=== PATIENT | male | born 1985 | race Two or more races ===

== ENCOUNTER 2016-08-27 12:02 | Emergency (ER) | payer OTHER ==
--- NOTE | 2016-08-27 12:21 | ER Document Report ---
ED Medical Screen (RME) - General Stated Complaint: NAUSEA Notes: Periodic rash to lower extremities I greeted and performed a rapid initial assessment of this patient. Comprehensive ED assessment and evaluation of the patient, analysis of test results and completion of the medical decision making process will be conducted by additional ED providers. Physical Exam - Vital signs Vitals: Temp Pulse Resp BP Pulse Ox 97.9 F 66 20 135/92 H 97 08/27/16 12:17 08/27/16 12:17 08/27/16 12:17 08/27/16 12:17 08/27/16 12:17 Course - Vital Signs Vital signs: Temp Pulse Resp BP Pulse Ox 97.9 F 66 20 135/92 H 97 08/27/16 12:17 08/27/16 12:17 08/27/16 12:17 08/27/16 12:17 08/27/16 12:17
[2016-08-27] MEDS ORDERED: PREDNISONE 20 MG TABLET PO ONE (14:22)
[2016-08-27] MEDS ORDERED: FAMOTIDINE 20 MG TABLET PO ONE (14:22)
--- NOTE | 2016-08-27 14:26 | ER Document Report ---
HPI - HPI Patient complains to provider of: skin rash Onset: Other - 5 days Onset/Duration: Persistent Quality of pain: Burning Pain Level: 4 Context: Patient complains of pruritic skin rash that started 5 days ago. Patient states rash started to the groin area has gradually expanded to the trunk and extremities. Patient reports using Benadryl and topical cortisone without improvement of his symptoms. Patient denies any new foods, drugs, or medications. Associated Symptoms: Other - Skin rash. denies: Fever Exacerbated by: Denies Relieved by: Denies Similar symptoms previously: No Recently seen / treated by doctor: No - ROS ROS below otherwise negative: Yes Systems Reviewed and Negative: Yes All other systems reviewed and negative - CONSTITUTIONAL Constitutional: DENIES: Fever, Chills - EENT EENT: DENIES: Sore Throat - CARDIOVASCULAR Cardiovascular: DENIES: Chest pain - RESPIRATORY Respiratory: DENIES: Trouble Breathing, Coughing - GASTROINTESTINAL Gastrointestinal: REPORTS: Nausea. DENIES: Abdominal Pain, Patient vomiting - MUSCULOSKELETAL Musculoskeletal: DENIES: Extremity pain, Back Pain - DERM Skin Color: Normal Past Medical History - General Information source: Patient - Social History Smoking Status: Never Smoker Chew tobacco use (# tins/day): No Frequency of alcohol use: Occasional Drug Abuse: None Occupation: active-duty Family History: Reviewed & Not Pertinent Patient has suicidal ideation: No Patient has homicidal ideation: No - Medical History Medical History: Negative Renal/ Medical History: Denies: Hx Peritoneal Dialysis Surgical Hx: Negative Vertical Provider Document - CONSTITUTIONAL Agree With Documented VS: Yes Exam Limitations: No Limitations General Appearance: WD/WN, No Apparent Distress - INFECTION CONTROL TRAVEL OUTSIDE OF THE [place] IN LAST 30 DAYS: No - HEENT HEENT: Atraumatic, Normal ENT Exam, Normocephalic Notes: No angioedema, no potential airway compromise - NECK Neck: Normal Inspection, Supple. negative: Lymphadenopathy-Left, Lymphadenopathy-Right - RESPIRATORY Respiratory: Breath Sounds Normal, No Respiratory Distress, Chest Non-Tender O2 Sat by Pulse Oximetry: 97 - CARDIOVASCULAR Cardiovascular: Regular Rate, Regular Rhythm, No Murmur - BACK Back: Normal Inspection - MUSCULOSKELETAL/EXTREMETIES Musculoskeletal/Extremeties: MAEW - NEURO Level of Consciousness: Awake, Alert, Appropriate Motor/Sensory: No Motor Deficit - DERM Integumentary: Warm, Dry, Rash - Diffuse erythematous maculopapular rash distributed to trunk and extremities, multiple excoriated areas Course - Re-evaluation Re-evalutation: 08/27/16 14:23 Discussed worsening signs or symptoms that patient should return immediately for. Patient verbalized understanding of instructions and agrees with plan of care - Vital Signs Vital signs: Temp Pulse Resp BP Pulse Ox 97.9 F 66 20 135/92 H 97 08/27/16 12:17 08/27/16 12:17 08/27/16 12:17 08/27/16 12:17 08/27/16 12:17 Discharge - Discharge Clinical Impression: Skin rash Condition: Stable Disposition: HOME, SELF-CARE Instructions: Steroid Medication, Antihistamines ([facility]) Additional Instructions: Return immediately for any new or worsening symptoms Followup with your primary care provider, call tomorrow to make a followup appointment Avoid scratching at skin STEROID MEDICATION: You have been given a medicine of the cortisone/steroid class. This medication is used to control inflammation or allergy. It is usually only given for a short period of time, until the acute process subsides. There are usually no side effects from short-term use of cortisone-like medications. Some persons feel an increased sense of well-being and are not sleepy at bedtime. Long-term use of cortisone medications is best avoided, unless required for a severe condition. If your condition does not remit, or relapses after the course of corticosteroid medication, you should consult your physician. ACID-SUPPRESSING MEDICATION: You have a prescription for medicine which reduces the stomach's secretion of acid. Examples include Zantac, Tagament, and Pepcid. These drugs are often used to allow healing of ulcers or esophagitis. They may be needed to prevent recurrence of ulcers in some patients, or to prevent damage from acid reflux in the esophagus. Take all medication as prescribed, even after the pain is gone. Regular antacids may be added as needed if you have symptoms while taking this medicine. These medications sometimes are prescribed for allergic reactions because they have anti-histaminic effects and relieve the rash and itching of the reaction. There are usually no side effects from this medication. But, in rare cases and particularly in the elderly, serious problems can occur. Contact your doctor if there is fever, rash, hallucinations, confusion, or unusual bruising. Contact your doctor at once if you develop lightheadedness, black or bloody stool, or bloody vomitus. ANTIHISTAMINES: An antihistamine has been given and/or prescribed to control your symptoms. Antihistamines are used for many reasons, including itching, watering eyes, runny nose, allergic swelling, hives, and insect stings. Antihistamines may cause drowsiness, especially with the first dose. Do not operate machinery or drive while under the effects of the medication. Other common side effects include dry mouth and eyes. In older persons, antihistamines can occasionally cause urinary retention, constipation, and trouble focusing the eyes. Do not combine the medication with alcohol, or with any other medication without talking to your doctor. FOLLOW-UP CARE: If you have been referred to a physician for follow-up care, call the physician s office for an appointment as you were instructed or within the next two days. If you experience worsening or a significant change in your symptoms, notify the physician immediately or return to the Emergency Department at any time for re-evaluation. Prescriptions: Famotidine [Pepcid 20 mg Tablet] 20 mg PO BID #12 tablet Hydroxyzine HCl [Atarax 25 mg Tablet] 1 - 2 tab PO QID #15 tablet Prednisone [Deltasone 20 mg Tablet] 3 tab PO DAILY 4 Days Referrals: [facility] [Provider Group] - Follow up tomorrow
[2016-08-27 14:54] VITALS: BP 139/95
== END 2016-08-27 14:51 | disposition home or self-care (01) ==
LOC: ER 12:02
DX: R21 Rash and other nonspecific skin eruption (principal); R11.0 Nausea
CPT/HCPCS: 99282; J7512

== ENCOUNTER → 2016-09-20 | Outpatient (CLI) | payer OTHER | LOC: RAD 17:02 | PROVIDERS: ATTEND Orthopaedic Surgery | DX: M25.511 Pain in right shoulder (principal) ==

== ENCOUNTER → 2016-11-16 | Outpatient (CLI) | payer OTHER | LOC: RAD 20:37 | PROVIDERS: ATTEND Orthopaedic Surgery | DX: M75.51 Bursitis of right shoulder (principal) ==